=== PATIENT | female | born 1985 | race Caucasian/White ===

== ENCOUNTER 2023-03-09 03:22 | Emergency (ER) | payer OTHER, SELFPAY ==
[2023-03-09 03:26] VITALS: BP 143/84; PULSE 94; RESP 20; O2SAT 100
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
[2023-03-09] MEDS: Lidocaine/Epinephri/Tetracaine Topical Gel 3 ML TP (03:42)
--- NOTE | 2023-03-09 03:45 | NUR.NOTE ---
Nursing Note: wound irrigated and let gel applied
[2023-03-09] MEDS: Cephalexin 500 MG CAP, 4 CAPS/BTL PO (05:01)
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
[2023-03-09 06:36] VITALS: PULSE 66; RESP 16; O2SAT 99
--- NOTE | 2023-03-09 17:42 | NUR.NOTE ---
Nursing Note: Accessed pt chart for information for [facility] billing purposes.
== END 2023-03-09 06:38 | disposition home or self-care (01) ==
LOC: ER 06:38
PROVIDERS: Emergency Provider Student in an Organized Health Care Education/Training Program
DX: S06.0X0A Concussion without loss of consciousness, initial encounter (principal); S01.411A Laceration without foreign body of right cheek and temporomandibular area, initial encounter; S02.2XXA Fracture of nasal bones, initial encounter for closed fracture; M79.641 Pain in right hand; V86.09XA Driver of other special all-terrain or other off-road motor vehicle injured in traffic accident, initial encounter; N18.9 Chronic kidney disease, unspecified
CPT/HCPCS: 12011; 36415; 90471; 99285; 70450; 70486; 73130; 99284